=== PATIENT | female | born 2000 | race African-American/Black ===

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

== ENCOUNTER 2018-04-29 06:50 | Day surgery (SDC) | payer OTHER ==
[2018-04-28 11:48] VITALS: BMI 39.9
[2018-04-29] MEDS ORDERED: Oxymetazoline HCl 0.05% ( 15 ML ) ONE (07:06)
[2018-04-29 08:06] LABS: BHCG - Serum Negative (NEGATIVE); Pregs Control Background? CLEAR/WHITE (CLR/WHITE); Pregs Control Bar Appear? YES (CONTROL BAR)
[2018-04-29] MEDS ORDERED: Midazolam HCl 2 mg/2 ml Vial ONE ×2 (08:19→08:44)
[2018-04-29] MEDS ORDERED: Lidocaine 1% w/Epinephrine 1:100K 20 ML VIAL ONE (08:43)
[2018-04-29] MEDS ORDERED: Fentanyl 100 MCG/2 ML VIAL ONE ×3 (08:44→10:39)
[2018-04-29] MEDS ORDERED: Oxymetazoline HCl 0.05% (30 ML BOT) ONE (08:46)
[2018-04-29] MEDS ORDERED: HYDROcodone/Acetaminophen 5/325 mg Tablet ONE (12:00)
--- NOTE | 2018-04-29 13:00 | OP ---
DATE OF PROCEDURE: 04/29/2018 PREOPERATIVE DIAGNOSES: 1. Chronic rhinosinusitis. 2. Bilateral nasal polyposis. 3. Allergic fungal sinusitis. POSTOPERATIVE DIAGNOSES: 1. Chronic rhinosinusitis. 2. Bilateral nasal polyposis. 3. Allergic fungal sinusitis. PROCEDURES: 1. Bilateral endoscopic sinus surgery, frontal sinusotomies. 2. Bilateral endoscopic sinus surgery, sphenoidotomies. 3. Left endoscopic sinus surgery, maxillary antrostomy with removal of tissue. 4. Cranial base image-guided navigational surgery. ESTIMATED BLOOD LOSS: 50 mL. COMPLICATIONS: None. ANESTHESIA: GETA. DESCRIPTION OF PROCEDURE: The patient was taken to the operating room and placed supine on the table. General endotracheal anesthesia was obtained by the anesthesia staff. Tube was secured in the left lower lip. The patient was then placed in the beach chair position and prepped and draped for standard nasal procedure. Following this, the [employer] image-guided navigational system was set up and calibrated and was noted to be within 1 mm of accuracy. Following this, a 0 degree endoscope was advanced in the nasal cavity. Injections of 1% lidocaine with 1:100,000 epinephrine were made into the inferior turbinates, middle turbinates, lateral nasal wall, as well as the superior turbinates bilaterally. There was polypoid mucosa and polyps, which were completely obstructing the left maxillary sinus ostia. Also, there was yellow purulence noted from the left greater than right sphenoid sinus draining down the posterior nasal wall. There was some scarring from the middle turbinate on its superior and anterior attachment to the lateral nasal wall, obstructing the frontal recess and frontal sinus ostia. Following this, the 0 degree endoscope was advanced into the nasal cavity. The [place] elevator was used to lateralize the middle turbinate and allow access to the anterior face of the sphenoid sinus. Using the image guided system, sphenoidotomies were recreated using the [place] tip suction. Following this, the 0-degree microdebrider was used to widen the sphenoidotomies medially and laterally. Some bone which was osteitic was removed. The sphenoid sinuses were then irrigated bilaterally. Following this, the left maxillary sinus was widened using the curved microdebrider. Polypoid mucosa was removed. Within the left maxillary sinus, there was fungal debris, which was removed using a curved suction, and the left maxillary sinus was irrigated. Following this, the 45-degree scope and the curved navigation microdebrider blade were used to further open the frontal recess and remove scarring from the anterior, superior, middle turbinates to the lateral nasal wall. Following this, the frontal sinus ostia was further widened using the microdebrider and navigational guidance, which confirmed a widely patent frontal sinus ostia bilaterally. Following this, the frontal sinus ostia was irrigated. Following this, the entire nasal cavity was irrigated. Mirapex was placed within the middle meatus. The patient tolerated the procedure well. Job ID: [id number]
[2018-04-29] MEDS ORDERED: Ondansetron PF 4 MG/2 ML Vial ONE (13:45)
[2018-04-29] MEDS ORDERED: PROPOFOL 200 MG/20 ML VIAL ONE (13:45)
[2018-04-29] MEDS ORDERED: Dexamethasone 20 MG/5 ML VIAL ONE (13:45)
== END 2018-04-29 12:22 | disposition home or self-care (01) ==
LOC: SDC 06:50
PROVIDERS: ATTEND Otolaryngology Plastic Surgery within the Head & Neck
PROC: 099W8ZZ Drainage of Right Sphenoid Sinus, Via Natural or Artificial Opening Endoscopic (ICD-10-PCS; principal; 2018-04-29)
PROC: 099T8ZZ Drainage of Left Frontal Sinus, Via Natural or Artificial Opening Endoscopic (ICD-10-PCS; principal; 2018-04-29)
PROC: 09BR8ZZ Excision of Left Maxillary Sinus, Via Natural or Artificial Opening Endoscopic (ICD-10-PCS; principal; 2018-04-29)
PROC: 099X8ZZ Drainage of Left Sphenoid Sinus, Via Natural or Artificial Opening Endoscopic (ICD-10-PCS; principal; 2018-04-29)
PROC: 8E09XBZ Computer Assisted Procedure of Head and Neck Region (ICD-10-PCS; principal; 2018-04-29)
PROC: 099S8ZZ Drainage of Right Frontal Sinus, Via Natural or Artificial Opening Endoscopic (ICD-10-PCS; principal; 2018-04-29)
DX: J32.4 Chronic pansinusitis (principal); J33.9 Nasal polyp, unspecified; J34.3 Hypertrophy of nasal turbinates; J30.89 Other allergic rhinitis; Z91.018 Allergy to other foods; Z86.73 Personal history of transient ischemic attack (TIA), and cerebral infarction without residual deficits; Z79.51 Long term (current) use of inhaled steroids; Z79.899 Other long term (current) drug therapy; Z88.7 Allergy status to serum and vaccine
CPT/HCPCS: 84703; 85014; 87070; 87205; J1100; J2001; J2250; J2405; J2704; J3010